=== PATIENT | male | born 1955 | race Caucasian/White ===

== ENCOUNTER 2020-07-31 10:14 | Emergency (ER) | payer MEDICARE, OTHER, SELFPAY ==
[2020-07-31] VITALS (14 sets, daily range): BP systolic 114–168; BP diastolic 69–116; PULSE 93–137; RESP 13–26; TEMP 35.7–36.8; O2SAT 94–100
--- NOTE | ~2020-07-31 | XR_ITS ---
EXAMINATION: XR tibia fibula LT 2V INDICATION: Leg soft tissue swelling and redness TECHNIQUE: Two views of the left tibia and fibula four radiographs. COMPARISON: None available FINDINGS: Surgical clips are noted in the soft tissues medial to the proximal tibia and knee. There i s mild osteoarthritis of the knee, ankle, and midfoot. Calcified atherosclerosis is noted. No no frac ture is identified. IMPRESSION: 1. No acute osseous abnormality or significant soft tissue findings. Reviewed, dictated and finalized at location B.
--- NOTE | ~2020-07-31 | US_ITS ---
EXAMINATION: US venous doppler [facility] DATE: 07/31/2020 11:21 INDICATION: Left lower limb swelling and redness TECHNIQUE: Crocker scale images without and with compression and Doppler images of the left lower extrem ity veins were obtained. COMPARISON: None FINDINGS: The left common femoral vein, profunda femoral vein, femoral vein, popliteal vein, peroneal trunk, posterior tibial veins, and greater saphenous vein are patent. IMPRESSION: 1. Patent left lower extremity veins. No evidence of deep venous thrombosis. Reviewed, dictated and finalized at location B.
--- NOTE | ~2020-07-31 | XR_ITS ---
EXAMINATION: XR chest 1V portable INDICATION: Weakness TECHNIQUE: Portable AP chest at 1147 hours COMPARISON: 09/21/2019 FINDINGS: There is stable cardiomegaly. The lungs are free of acute opacities. There is no pleural ef fusion or pneumothorax. Median sternotomy wires and mediastinal surgical clips are seen, likely from prior coronary artery bypass grafting. Osteoarthritis is noted in the shoulders. IMPRESSION: 1. Stable cardiomegaly. Reviewed, dictated and finalized at location B. IMPRESSION: 1. Stable cardiomegaly.
--- NOTE | ~2020-07-31 | CT_ITS ---
EXAMINATION: CT LE LT w con DATE: 07/31/2020 14:13 INDICATION: Swelling, erythema and possible abscess at the left lower leg TECHNIQUE: High resolution computed tomography (CT) of the left lower leg was performed with 100 mL O mnipaque-350 intravenous contrast. Additional sagittal and coronal reconstructions were performed. Au tomated exposure control and iterative reconstruction technique were employed. The dose-length produc t was 1160.96 mGy-cm. COMPARISON: None FINDINGS: Postoperative changes along the calf with multiple surgical clips along the medial calf likely relate d to prior saphenous vein graft harvest. 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 There is runoff to below th e ankle in the posterior tibial and peroneal arteries. The anterior tibial artery occludes in the pro ximal to mid calf. Peripherally enhancing lenticular fluid collection along the superficial margin of the medial head of the gastrocnemius muscle which measures 5.8 cm proximal to distal and 3.8 x 1.7 cm in maximal transa xial dimensions. The fluid collection centered 15 cm distal to the knee joint line. No left knee join t effusion. There is an additional loculated fluid collection situated in the superior popliteal rece ss deep to the popliteal artery and vein which measures 4.8 cm craniocaudally and 4.9 x 1.6 cm in max imal transaxial dimensions. No organized peripherally enhancing wall or surrounding inflammatory stra nding. Bone alignment is normal. No fracture. No cortical erosions or periosteal reaction to suggest osteomyelitis. Small amount of heterotopic ossification along the medial malleolus likely sequela of prior deltoid ligament sprain. IMPRESSION: 1. 5.8 x 3.8 x 1.7 cm loculated fluid collection in the proximal calf along the superficial margin of the medial head of the gastrocnemius muscle with differential including abscess or hematoma/seroma. 2. Additional 4.9 x 1.6 x 4.8 cm loculated fluid collection in the deep popliteal recess posterior to the distal femur without organized peripheral enhancing wall or surrounding from trace stranding bert ng with several adjacent surgical clips which would favor a seroma related to prior surgery over absc ess. Differential would also include less likely ganglion cyst arising from the knee. 3. 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 Reviewed, dictated and finalized at location A. IMPRESSION: 1. 5.8 x 3.8 x 1.7 cm loculated fluid collection in the proximal calf along the superficial margin of the medial head of the gastrocnemius muscle with differe ntial including abscess or hematoma/seroma. 2. Additional 4.9 x 1.6 x 4.8 cm loculated fluid collection in the deep poplite al recess posterior to the distal femur without organized peripheral enhancing wall or surrounding from trace stranding along with several adjacent surgical c lips which would favor a seroma related to prior surgery over abscess. Differen tial would also include less likely ganglion cyst arising from the knee. 3. 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
--- NOTE | 2020-07-31 10:41 | ECG_ITS ---
Measurements Intervals [place] Rate: 136 P: NV: 0 QRS: -45 QRSD: 110 T: 134 QT: 306 QTc: 461 Interpretive Statements ATRIAL FLUTTER/TACHYCARDIA WITH RAPID VENTRICULAR RESPONSE LEFT ANTERIOR FASCICULAR BLOCK LEFT VENTRICULAR HYPERTROPHY AND ST-T CHANGE ST-T WAVE ABNORMALITY IN HIGH LATERAL LEADS- CONSIDER ISCHEMIA ABNORMAL ECG Electronically Signed On 07-31-2020 11:38:37 CDT by Varinder Shrestha D.O.
--- NOTE | 2020-07-31 10:43 | ED.LOWEXIN ---
HPI - Extremity Injury (Lower) General Chief Complaint: Extremity Injury, Lower Stated Complaint: LEG PAIN Time Seen by Provider: 07/31/20 10:17 Source: patient Mode of arrival: EMS Limitations: no limitations History of Present Illness HPI Narrative: This patient is a 65 year old male who presents from home for evaluation of left leg pain. Patient states he fell onto his left leg 1 week ago. He has been having pain to left lower leg. His made him finally come get evaluated since he has redness and swelling to his leg. He denies nausea, vomiting, fever, chills, sob, or chest pain. He was noticed to have a heart rate of 13os on arrival but he denies palpitations or heart racing. He reports history of atrial fibrillation. Related Data Home Medications Medication Instructions Recorded Confirmed amlodipine [Norvasc] 5 mg PO DAILY 07/31/20 apixaban [Eliquis] 5 mg PO BID 07/31/20 aspirin 81 mg PO DAILY 07/31/20 atorvastatin 80 mg PO DAILY 07/31/20 furosemide [Lasix] 80 mg PO BID 07/31/20 gabapentin 300 mg PO BID 07/31/20 insulin glargine 22 unit SUBCUT HS 07/31/20 levothyroxine 88 mcg PO DAILY 07/31/20 lisinopril 20 mg PO DAILY 07/31/20 metoprolol succinate [Toprol XL] 200 mg PO DAILY 07/31/20 omeprazole 20 mg PO DAILY 07/31/20 potassium chloride 10 meq PO BID 07/31/20 quetiapine 50 mg PO HS 07/31/20 Allergies Allergy/AdvReac Type Severity Reaction Status Date / Time codeine Allergy Mild Unknown Verified 07/31/20 10:32 Penicillins Allergy Unknown Hives / Verified 09/21/19 07:45 Red Face procaine Allergy Unknown Unknown Verified 07/31/20 10:32 lidocaine Allergy Unknown Verified 07/31/20 10:32 Review of Systems Review of Systems: All systems reviewed & are unremarkable except as noted in HPI and below Constitutional: Constitutional: Denies chills and Denies fever(s) Cardiovascular: Cardiovascular: Denies chest pain, Denies rapid heart rate and Denies radiating jaw, neck or arm pain Respiratory: Respiratory: Denies dyspnea Gastrointestinal: Gastrointestinal: Denies abdominal pain, Denies nausea and Denies vomiting Neurologic: Reports numbness (peripheral neuropathy) PMFSH Past Medical History Medical History (Updated 08/01/20 @ 00:00 by Dahiana Ge) Atrial flutter Diabetes mellitus History of recent vascular procedure Hypertension Hypothyroid Peripheral neuropathy Social History Social History (Updated 07/31/20 @ 19:55 by Pratibha Jacques MD) Smoking status: Former smoker Gender identity (if verbalized by the patient): Male Exam Const: General: alert Orientation/consciousness: patient oriented x3 HENMT: Head: normocephalic and atraumatic Face and sinus: face symmetric Throat: posterior oropharynx normal Eyes: EOM: EOMs intact bilaterally Chest: Chest palpation & inspection: normal inspection of the chest Resp: Effort & Inspection: normal respiratory effort and retractions Auscultation: clear to auscultation bilaterally Cardio: Rate: tachycardic Rhythm: abnormal rhythm regularly irregular Heart sounds: no murmurs GI: GI Palp: Yes Soft to palpation, No Tenderness to palpation present (GI), No Guarding due to palpation present (GI) and No Rigid due to palpation Neuro: General: patient oriented x3 and moves all extremities Extrem: General: no pedal edema Other: left lower leg with healing surgical incision medial calf with surrounding erythema, tenderness and induration. left great toe with dry gangrene, no erythema or drainage;; able to palpate DP, PT pulses on left Psych: Mental Status: mental status grossly normal Affect: normal affect Course Reevaluation(s) Reevaluation #1: PAtient is now complaining of chest pain Date: 07/31/20 Time: 11:57 Reevaluation #2: Patient understands he is being transferred to [place] as the [facility] had no beds. He understands I spoke with his vascular surgeon. Attempted to given patient Annkirtmely as his r
[2020-07-31] MEDS: LACTATED RINGERS 1,000 ML 999 ML IV CONT (10:48)
--- NOTE | 2020-07-31 11:09 | PC.NURSE ---
PT REPORT TO RHINA BROUSSARD AT THIS TIME, PT IN RADIOLOGY. SHE HAS ASSUMED CARE.
[2020-07-31 11:10] LABS: Basophils Percent Auto 0.5 % (0.2-1.2); Eosinophils Absolute Auto 0.1 K/mm3 (0-0.3); Eosinophils Percent Auto 1.8 % (0-4.4); Hemoglobin 13.3 g/dL (14.0-18.0); Immature Granulocyte Absolute 0.04 K/mm3 (0.00-0.031); Immature Granulocyte Percent A 0.6 % (0-0.5); Lymphocytes Percent Auto 12.1 % (18.3-44.2); Mean Corpuscular HGB Conc 29.6 g/dl (32-36); Mean Corpuscular Volume 91.5 fl (80-100); Mean Platelet Volume 10.5 fl (7.4-10.4); Monocytes Absolute Auto 0.7 K/mm3 (0.1-0.6); Platelet Count Result 290 k/mm3 (150-375); Red Blood Count 4.92 M/mm3 (4.6-6.20); Red Cell Distribution Width 18.4 % (11.5-14.5); White Blood Count 6.6 K/mm3 (4.5-10.0)
[2020-07-31 11:20] LABS: INR 1.2; Prothrombin Time 15.1 Seconds (11.1-14.7)
[2020-07-31 11:22] LABS: Lactic Acid Reflex 1.2 mmol/L (0.7-2.1)
[2020-07-31 11:36] LABS: Alanine Aminotransferase 10 U/L (4-50); Albumin Level 3.3 g/dL (3.5-5.1); Alkaline Phosphatase 110 U/L (38-126); Anion Gap 9 mmol/L (8-16); Aspartate Amino Transferase 23 U/L (17-59); Bilirubin,Total 1.3 mg/dL (0.2-1.3); Blood Urea Nitrogen 16 mg/dL (9-20); CRP 17.5 mg/dL (<1.0); Calcium 8.6 mg/dL (8.4-10.2); Carbon Dioxide 22 mmol/L (22-30); Chloride 105 mmol/L (98-107); Estimated CRCL calculation 52 ml/min; Estimated Glomerular Filt Rate 55; Glucose 170 mg/dL (75-110); Potassium 4.2 mmol/L (3.4-5.0); Sodium 136 mmol/L (137-145)
[2020-07-31] MEDS: ERTAPENEM 1 GM/NS 50 ML 1 GM/50 ML BAG IVPB (11:53)
[2020-07-31] MEDS: dilTIAZem HCl INJ 25 MG/5 ML VIAL 10 MG IV PUSH (11:58)
[2020-07-31] MEDS: METOPROLOL TARTRATE INJ 5 MG/5 ML VIAL IV PUSH ×2 (12:16→16:47)
[2020-07-31] MEDS: NITROGLYCERIN OINTMENT 1 INCH DOSE TRANSDERM (12:16)
[2020-07-31 12:30] LABS: Troponin I 0.022 ng/mL (0.000-0.034)
[2020-07-31] MEDS: diphenhydrAMINE HCl INJ 50 MG/ML VIAL 25 MG IV PUSH (13:07)
[2020-07-31] MEDS: METOPROLOL TARTRATE 50 MG TAB 25 MG PO (17:01)
[2020-07-31] MEDS: METOPROLOL SUCCINATE EXT REL 100 MG TABCR 200 MG PO (19:41)
[2020-07-31] MEDS: ASPIRIN 81 MG CHEWABLE TABLET 324 MG PO (19:42)
== END 2020-07-31 22:20 | disposition short-term general hospital (02) ==
PROVIDERS: Emergency Provider General Practice
DX: L76.82 Other postprocedural complications of skin and subcutaneous tissue (principal); I48.91 Unspecified atrial fibrillation; R00.0 Tachycardia, unspecified; Z79.4 Long term (current) use of insulin; I10 Essential (primary) hypertension; E11.43 Type 2 diabetes mellitus with diabetic autonomic (poly)neuropathy
CPT/HCPCS: 36415; 71045; 73590; 73701; 80053; 83605; 83735; 84484; 85025; 85610; 85730; 86140; 87040; 93005; 93971; 96361; 96365; 96366; 96367; 96375; 96376; 99285; A9270; J1200; J1335; J3370; J7120; Q9967